=== PATIENT | female | born 1945 | race Caucasian/White ===

== ENCOUNTER → 2018-03-07 | Outpatient (CLI) | payer OTHER ==
[~2018-03-07] MED LIST: AZOPT5 ML OP; COZAAR 50 MG TA50 M2 PO; ESTRACE1 MG PO; LIPITOR 20 MG T20 M1 PO; LUMIGAN2.5 M1 OP
== END ==
LOC: M.RAD 08:55
DX: Z12.31 Encounter for screening mammogram for malignant neoplasm of breast (principal); M19.90 Unspecified osteoarthritis, unspecified site; K21.9 Gastro-esophageal reflux disease without esophagitis

== ENCOUNTER → 2020-04-20 | Outpatient (CLI) | payer MEDICARE | LOC: M.RAD 04-06 09:30 | PROVIDERS: ATTEND Family Medicine | DX: Z12.31 Encounter for screening mammogram for malignant neoplasm of breast (principal) ==